=== PATIENT | male | born 1960 | race African-American/Black ===

== ENCOUNTER 2016-11-24 15:21 | Emergency (ER) | payer OTHER, BC ==
[~2016-11-24] VITALS: Ht 182.9 cm; Wt 115.0 kg
[~2016-11-24 15:21] MED LIST: BENA25TA8 PO; EPIP0.3I IM; HYDR-2768 PO; LISI-360 PO; MEDR4PAK3 PO; METF500 PO; METO25 PO; POTA-267 PO
[2016-11-24 15:42] VITALS: BP 165/107; PULSE 87; RESP 18; TEMP 98.8; O2SAT 100
[2016-11-24] MEDS ORDERED: HTN MED (16:31)
[2016-11-24] MEDS ORDERED: ceFAZolin 2 GM PREMIX 50 ML IV ONE (17:45)
[2016-11-24] MEDS ORDERED: CEPH-460 PO (17:59)
--- NOTE | 2016-11-24 17:59 | PD ---
HPI Chief Complaint: Injury Time Seen by Provider: 16:40 Travel History International Travel<30 days: No Contact w/Intl Traveler<30days: No Traveled to known affect area: No History of Present Illness HPI 56-year-old male presents emergency department for evaluation of crush injury to the left fourth digit. While at work approximately 7 AM this morning patient crushed his finger in between 2 metal bars. Patient reports that he covered the wound with a dressing put on apparently glancing continue to work. He was unable to get the wound to stop bleeding so he went to a local urgent care clinic. While there he had an x-ray which showed a fracture to the distal phalanx with displacement. He also has a 1.5 cm laceration to the medial aspects of the digit near the nail. He denies numbness or weakness in the extremity. He reports normal sensation. Tetanus immunization is less than 5 years. He was sent to the urgent care clinic for further evaluation of the emergency department. [facility] Past Medical History Narrative Medical Significant for hypertension. Diabetes: Yes Hypertension: Yes Tetanus Vaccination: < 5 Years Past Surgical History Surgical History: No Previous Surgery Social History Alcohol Use: Yes (OCC) Tobacco Use: No Allergies-Medications (Allergen,Severity, Reaction): Coded Allergies: lisinopril (Verified Allergy, Severe, ANGIOEDEMA, 11/24/16) Reported Meds & Prescriptions Reported Meds & Active Scripts Active Keflex (Cephalexin) 500 Mg Cap 500 Mg PO Q6H Reported [Htn Med] Review of Systems Except as stated in HPI: all other systems reviewed are Neg General / Constitutional: No: Fever Eyes: No: Visual changes HENT: No: Headaches Cardiovascular: No: Chest Pain or Discomfort Respiratory: No: Shortness of Breath Gastrointestinal: No: Abdominal Pain Physical Exam Narrative GENERAL: Well-nourished, well-developed patient. SKIN: Focused skin assessment warm/dry. 1.5 cm laceration to the distal/medial aspect of the fourth digit near the nail HEAD: Normocephalic. EYES: No scleral icterus. No injection or drainage. NECK: Supple, trachea midline. No JVD or lymphadenopathy. CARDIOVASCULAR: Regular rate and rhythm without murmurs, gallops, or rubs. RESPIRATORY: Breath sounds equal bilaterally. No accessory muscle use. GASTROINTESTINAL: Abdomen soft, non-tender, nondistended. MUSCULOSKELETAL: No cyanosis, or edema. Left hand: Notable tenderness and swelling to the distal aspect of the fourth digit.1.5 cm laceration to the distal/medial aspect of the fourth digit near the nail. Patient has full range of motion and normal sensation of the digit. BACK: Nontender without obvious deformity. No CVA tenderness. Data Data Last Documented VS Vital Signs Date Time Temp Pulse Resp B/P Pulse Ox O2 Delivery O2 Flow Rate FiO2 11/24/16 15:42 98.8 87 18 165/107 100 Room Air Orders Iv Access Insert/Monitor (11/24/16 17:39) Cefazolin 2 Gm Premix (Ancef 2 Gm Premix (11/24/16 17:45) MDM Medical Decision Making Medical Screen Exam Complete: Yes Emergency Medical Condition: Yes Differential Diagnosis Distal phalanx fracture, laceration, open fracture, crush injury Narrative Course 56-year-old male with distal phalanx fracture and laceration to the left fourth digit. 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 X-rays were reviewed with her. She recommends laceration repair, IV antibiotics, finger splint and follow-up in office this week. IV access established 2 g of Ancef administered. Wound copiously irrigated with 1 L of normal saline. Wound sutured closed. Patient placed in finger splint for detecting the distal digit. Follow-up care and wound care discussed at length with patient. He agrees to follow with Dr. Jimenez in office this week. He is to call tomorrow morning to schedule an appointment. Return precautions discussed. Patient will be discharged home with oral antibiotics and pain medicines. Patient verbalized understanding and agrees to plan Procedures Procedure Narrative LACERATION LOCATION: Left fourth digit LENGTH: And 1.5 cm NUMBER OF STITCHES/MONSTER: 3 REPAIR: The area of the laceration was prepped with Betadine and sterilely draped. Digital block performed with 1% lidocaine. The wound was copiously irrigated and explored without evidence of foreign body, tendon injury or neurovascular injury. The wound was closed using 4-0 Ethilon. This was a single layer repair. A sterile dressing was applied. The patient was advised to keep the dressing clean and dry. Patient tolerated the procedure well. Cage finger splint applied Diagnosis Primary Impression: Phalanx, distal fracture of finger Qualified Code: S62.635B - Open displaced fracture of distal phalanx of left ring finger, initial encounter Referrals: Amita Jimenez MD Additional Instructions: Take the antibiotics as prescribed. Do not submerge the laceration in water. Change the dressing daily. With finger splint at all times. Call tomorrow morning to schedule an appointment with Dr. Jimenez's office. Return to emergency department if he developed new or worsening symptoms. Scripts Cephalexin (Keflex)500 Mg Dls435 Mg PO Q6H #28 CAP Prov:Jyoti Christie 11/24/16 Disposition: 01 DISCHARGE HOME Condition: Stable Jyoti Christie Nov 24, 2016 17:59
[2016-11-24] MEDS ORDERED: ULTR50TA5 PO (18:29)
[2016-11-24 19:14] VITALS: BP 148/103
== END 2016-11-24 19:15 | disposition home or self-care (01) ==
LOC: PHEFT 15:21
DX: S62.635B Displaced fracture of distal phalanx of left ring finger, initial encounter for open fracture (principal); I10 Essential (primary) hypertension; E11.8 Type 2 diabetes mellitus with unspecified complications; W23.0XXA Caught, crushed, jammed, or pinched between moving objects, initial encounter; Y93.89 Activity, other specified; Y92.89 Other specified places as the place of occurrence of the external cause; Y99.0 Civilian activity done for income or pay
CPT/HCPCS: 12001; 96365; 99283; J0690